=== PATIENT | male | born 1950 | race Caucasian/White ===

== ENCOUNTER 2017-08-30 06:32 | Inpatient (IN) | payer MEDICARE ==
--- NOTE | 2017-08-26 10:08 | HP ---
NEUROSURGERY SERVICE HISTORY OF PRESENT ILLNESS: Mr. Ledezma is a 66-year-old male with a past medical history of atrial fibrillation and hypertension who was recently seen in the office for a right C7 radiculopathy. MRI scan showed severe degenerative disk disease and congenitally small cervical canal, most pronounced at C5-C6 and C6-C7. Dr. Dumas discussed risks, benefits, and alternatives of C5-C7 ACDF and patient wishes to proceed. PAST MEDICAL HISTORY: Atrial fibrillation and hypertension. CURRENT MEDICATION LIST: Soma, Bystolic, amlodipine, Cymbalta. PAST SURGICAL HISTORY: Right shoulder surgery and back surgery. FAMILY HISTORY: Noncontributory. SOCIAL HISTORY: The patient does not smoke, drink or use any drugs. ALLERGIES: Patient has no known drug allergies. REVIEW OF SYSTEMS: Per HPI. PHYSICAL EXAMINATION: Patient appears comfortable sitting in the chair. He is in no acute distress. He has steady gait. No focal motor weakness is appreciated. No reflex asymmetry. Negative Delvalle' s, negative clonus. ASSESSMENT AND PLAN: C5-C7 anterior cervical discectomy and fusion. AMIRAH
[2017-08-27 11:55] VITALS: BMI 28.3
[2017-08-30] MEDS ORDERED: Sodium Chloride 0.9% 10 ML ONE (07:01)
[2017-08-30 08:05] LABS: #Eosinphils 0.2 thou/uL (0.0-0.7); #Lymphocytes 1.3 thou/uL (1.20-3.40); #Monocytes 0.3 thou/uL (0.11-0.59); #Neutrophils 3.5 thou/uL (1.40-6.50); %Basophils 0.2 % (0.0-1.0); %Eosinophils 3.4 % (0.0-10.0); %Lymphocytes 25.3 % (21.0-51.0); %Monocytes 4.8 % (0.0-10.0); %Neutrophils 66.3 % (42.0-75.0); Hemoglobin 11.9 g/dL (14.0-18.0); Mean Corpuscular Hemoglobin 33.6 pg (27.0-31.0); Mean Corpuscular Volume 96.1 fl (80.0-94.0); Mean Platelet Volume 6.9 fL (7.4-10.4); Platelet Count 147 thou/uL (130-400); RBC Distribution Width 11.9 % (11.5-14.5); Red Blood Cell (RBC) Count 3.54 mill/uL (4.70-6.10); White Blood Cell (WBC) Count 5.3 thou/uL (4.8-10.8)
[2017-08-30] MEDS ORDERED: CEFAZOLIN/Water 2 GM/20 ML SYRINGE ONE (08:10)
[2017-08-30 08:28] LABS: Anion Gap 12 mmol/L (10-20); BUN (Urea Nitrogen) 13 mg/dL (8.4-25.7); Calc. Creatinine Clearance 103 mL/min (70-130); Calcium 8.4 mg/dL (7.8-10.44); Carbon Dioxide 25 mmol/L (23-31); Chloride 109 mmol/L (98-107); Estimated GFR-MDRD Greater than 90; Glucose 106 mg/dL (80-115); Potassium 3.8 mmol/L (3.5-5.1); Sodium 142 mmol/L (136-145)
[2017-08-30] MEDS ORDERED: Lidocaine 1% PF 5 ML VIAL ONE (12:25)
[2017-08-30] MEDS ORDERED: Ketorolac Tromethamine 30 MG/ML VIAL ONE (12:25)
[2017-08-30] MEDS ORDERED: diphenhydrAMINE 50 MG/ML VIAL ONE (12:25)
[2017-08-30] MEDS ORDERED: PROPOFOL 200 MG/20 ML VIAL ONE (12:25)
[2017-08-30] MEDS ORDERED: Dexamethasone 20 MG/5 ML VIAL ONE (12:25)
[2017-08-30] MEDS ORDERED: Glycopyrrolate 0.2 MG/ML 5 ML SYRINGE ONE (12:25)
--- NOTE | 2017-08-30 13:53 | OP ---
DATE OF PROCEDURE: 08/30/2017 SURGEON: Bandar Dumas M.D. FLAGGER: Surjit Alvarenga PA-C PROCEDURES PERFORMED: Anterior cervical discectomy C5-C6 and C6-C7, interbody arthrodesis, intervert ebral biomechanical device, local morselized autograft, demineralized bone matrix, anterior titanium instrumentation. PROCEDURE IN DETAIL: The patient was brought to the operating room, intubated. He was positioned cifuentes pine with the head in modest extension on a gel-filled donut. Incision was made in the right precerv ical area and dissecting medial to the sternocleidomastoid muscle, as well as identified the anterior cervical spine and our level was confirmed by x-ray. We placed distraction across the interspaces a nd using the operative microscope and microdissection technique. We debrided the intervertebral disc s down to the level of the PLL decompressing the neural elements. The bony endplates were then decor ticated for the purpose of arthrodesis and appropriately sized intervertebral biomechanical PEEK gee ce was brought into the field, filled with demineralized bone matrix and local morselized autograft, and tapped into place securely at C5-C6 and C6-C7. Next, an anterior plate was brought in the field and secured to C5, C6, and C7 using two 14 mm screws at each level. The wound was then extensively i rrigated, immaculate hemostasis was secured. The wound was closed in anatomic layers.
--- NOTE | 2017-08-31 14:30 | EKG ---
Test Reason : PREOP Blood Pressure : / mmHG Vent. Rate : 073 BPM Atrial Rate : 073 BPM P-R Int : 204 ms QRS Dur : 092 ms QT Int : 422 ms P-R-T Axes : 061 027 035 degrees QTc Int : 464 ms Normal sinus rhythm Normal ECG No previous ECGs available Confirmed by DR. Cristina POLLOCK ([id number]) on 08/31/2017 2:29:50 PM Referred By: TERRA Confirmed By:DR. Cristina POLLOCK
== END 2017-08-30 12:24 | disposition home or self-care (01) | DRG 473 ==
LOC: SURG A 06:32
PROVIDERS: ADMIT Neurological Surgery; ATTEND Neurological Surgery
PROC: 0RG20A0 Fusion of 2 or more Cervical Vertebral Joints with Interbody Fusion Device, Anterior Approach, Anterior Column, Open Approach (ICD-10-PCS; principal; 2017-08-30)
PROC: 0RB30ZZ Excision of Cervical Vertebral Disc, Open Approach (ICD-10-PCS; 2017-08-30)
DX: M50.123 Cervical disc disorder at C6-C7 level with radiculopathy (principal); I48.91 Unspecified atrial fibrillation; I10 Essential (primary) hypertension; E78.5 Hyperlipidemia, unspecified; Z85.828 Personal history of other malignant neoplasm of skin
CPT/HCPCS: 36415; 76001; 80048; 85025; 93005; 93010; A4216; C1713; C1776; J1100; J1200; J1885; J2001; J2704; J3490

== ENCOUNTER 2018-04-11 07:38 | Inpatient (IN) | payer MEDICARE, OTHER ==
[2018-04-11 08:52] LABS: #Eosinphils 0.1 thou/uL (0.0-0.7); #Lymphocytes 1.5 thou/uL (1.20-3.40); #Monocytes 0.3 thou/uL (0.11-0.59); #Neutrophils 3.7 thou/uL (1.40-6.50); %Basophils 0.8 % (0.0-1.0); %Eosinophils 2.4 % (0.0-10.0); %Lymphocytes 26.8 % (21.0-51.0); %Monocytes 4.7 % (0.0-10.0); %Neutrophils 65.2 % (42.0-75.0); Hemoglobin 12.7 g/dL (14.0-18.0); Mean Corpuscular HGB CONC 34.9 g/dL (32.0-36.0); Mean Corpuscular Hemoglobin 32.8 pg (27.0-31.0); Mean Platelet Volume 7.5 fL (7.4-10.4); Platelet Count 168 thou/uL (130-400); RBC Distribution Width 11.5 % (11.5-14.5); Red Blood Cell (RBC) Count 3.87 mill/uL (4.70-6.10); White Blood Cell (WBC) Count 5.6 thou/uL (4.8-10.8)
[2018-04-11] MEDS ORDERED: Sodium Chloride 0.9% 10 ML ONE (09:03)
[2018-04-11 09:12] LABS: Anion Gap 14 mmol/L (10-20); BUN (Urea Nitrogen) 13 mg/dL (8.4-25.7); Calc. Creatinine Clearance 103 mL/min (70-130); Calcium 8.7 mg/dL (7.8-10.44); Carbon Dioxide 23 mmol/L (23-31); Chloride 106 mmol/L (98-107); Estimated GFR-MDRD Greater than 90; Glucose 121 mg/dL (80-115); Sodium 139 mmol/L (136-145)
[2018-04-11] MEDS ORDERED: Fentanyl 100 MCG/2 ML VIAL ONE ×3 (09:35→12:08)
[2018-04-11] MEDS ORDERED: CEFAZOLIN 2 GM/50 ML BAG ONE (09:38)
[2018-04-11] MEDS ORDERED: Promethazine HCl 25 MG/ML VIAL IM PRN ×2 (10:49→13:21)
[2018-04-11] MEDS ORDERED: Promethazine HCl 25 MG/ML VIAL SLOW IVP PRN (10:49)
--- NOTE | 2018-04-11 12:06 | EKG ---
Test Reason : PREOP Blood Pressure : / mmHG Vent. Rate : 069 BPM Atrial Rate : 069 BPM P-R Int : 206 ms QRS Dur : 088 ms QT Int : 430 ms P-R-T Axes : 061 018 041 degrees QTc Int : 460 ms Normal sinus rhythm Normal ECG When compared with ECG of 30-AUG-2017 08:29, No significant change was found Confirmed by ANA MARROQUIN ([id number]) on 04/11/2018 12:06:11 PM Referred By: TERRA Confirmed By:ANA MARROQUIN
--- NOTE | 2018-04-11 12:19 | OP ---
DATE OF PROCEDURE: 04/11/2018 GENERAL LABORER: Lyle. PROCEDURES PERFORMED: Removal of hardware, C5-C7, exploration of spinal fusion, C5-C7 anterior cervical diskectomy, C7-T1, interbody arthrodesis, intervertebral Biomechanical device, local morselized autograft, demineralized bone matrix, anterior titanium instrumentation, C5-T1. DESCRIPTION OF PROCEDURE: The patient was brought to the operating room and intubated. He was positioned supine with the head modest extension on a gel- filled donut. An incision was made in the right precervical area and dissected medial to the sternocleidomastoid muscle. We identified the anterior cervical spine and the level was confirmed by x-ray. We removed the previous plate from C5-C7. We explored the spinal fusion and I could not be convinced that it was solid. We next placed distraction from C7-T1 and using operative microscope and microdissection techniques, completely removed the intervertebral disk and decompressed the neural elements. The bony endplates were then decorticated for the purpose of arthrodesis and an appropriate-sized intervertebral Biomechanical PEEK device was brought into the field, and filled with demineralized bone matrix, local morselized autograft , and tapped in place securely at C7-T1. Next, an anterior plate was brought into the field and secured to C5, C6, C7, and T1 using two 14 mm screws at each level. The wound was extensively irrigated and adequate hemostasis was secured, and the wound was closed in anatomic layers over drain. Job ID: [id number] [id number]
[2018-04-11 13:14] VITALS: BMI 27.4
[2018-04-11] MEDS ORDERED: diphenhydrAMINE 25 MG CAP PO PRN (13:21)
[2018-04-11] MEDS ORDERED: tiZANidine HCl 4 MG TAB PO PRN (13:21)
[2018-04-11] MEDS ORDERED: Morphine 4 MG/ML VIAL SLOW IVP PRN (13:21)
[2018-04-11] MEDS ORDERED: diphenhydrAMINE 50 MG/ML VIAL IVP PRN (13:21)
[2018-04-11] MEDS ORDERED: Promethazine HCl 12.5 MG SUPP PR PRN (13:21)
[2018-04-11] MEDS ORDERED: traMADol HCl 50 MG TAB PO PRN ×2 (13:21)
[2018-04-11] MEDS ORDERED: Milk Of Magnesia 30 ML UDCUP PO PRN (13:21)
[2018-04-11] MEDS ORDERED: Mag-Al 1200 mg/1200 mg/30 ML UDCUP PO PRN (13:21)
[2018-04-11] MEDS ORDERED: Promethazine 25 MG TAB PO PRN (13:21)
[2018-04-11] MEDS ORDERED: HYDROcodone/Acetaminophen 10/325 mg Tablet PO PRN (13:21)
[2018-04-11] MEDS ORDERED: Ondansetron PF 4 MG/2 ML Vial IVP PRN (13:24)
[2018-04-11] MEDS ORDERED: Prevnar 13-Val Conj/PF 0.5 ML SYRINGE IM ONE (13:30)
[2018-04-11] MEDS: HYDROcodone/Acetaminophen 10/325 mg Tablet PO PRN ×2 (13:48→19:03)
[2018-04-11] MEDS: Sodium Chloride 0.9% 1,000 ML IV SCH (15:29)
[2018-04-11] MEDS ORDERED: hydrALAZINE 20 MG/ML VIAL SLOW IVP PRN (17:24)
--- NOTE | 2018-04-11 17:24 | PDOC.PN ---
- Subjective Encounter Start Date: 04/11/18 Encounter Start Time: 17:22 Pt seen for management of medical comorbidities including hypertension. Denies chest pain, shortness of breath, fevers or chills. - Objective MAR Reviewed: Yes Vital Signs & Weight: Vital Signs (12 hours) Temp Pulse Resp BP Pulse Ox 04/11/18 16:00 89 18 154/88 H 04/11/18 12:40 97.8 F 89 18 163/85 H 96 Weight Weight 170 lb I&O: 04/10/18 04/11/18 04/12/18 06:59 06:59 06:59 Intake Total 120 Balance 120 Result Diagrams: 04/11/18 08:41 04/11/18 08:41 Additional Labs: Labs reviewed by me Phys Exam - Physical Examination Constitutional: NAD HEENT: moist MMs s/p surgery Respiratory: clear to auscultation bilateral Cardiovascular: RRR Gastrointestinal: soft Neurological: moves all 4 limbs Psychiatric: normal affect Dx/Plan (1) HTN (hypertension) Code(s): I10 - ESSENTIAL (PRIMARY) HYPERTENSION Status: Acute Comment: continue beta catherine (nebivolol), hold amlodipine for now. PRN IV hydralazine for blood pressure spikes. (2) Atrial fibrillation Code(s): I48.91 - UNSPECIFIED ATRIAL FIBRILLATION Status: Chronic Comment: Pt currently in sinus rhythm, continue Flecainide - Plan * . Review of Systems - Review of Systems Respiratory: negative: Cough, Shortness of Breath, SOB with Excertion, Pleuritic Pain, Wheezing Cardiovascular: negative: chest pain, palpitations, orthopnea, paroxysmal nocturnal dyspnea, edema, light headedness - Medications/Allergies Allergies/Adverse Reactions: Allergies Allergy/AdvReac Type Severity Reaction Status Date / Time No Known Allergies Allergy Verified 04/11/18 15:36 Medications: Current Medications Hydrocodone Bitart/Acetaminophen (Bradner 10/325) 1 tab PO Q4H PRN PRN Reason: PAIN (1-3) Hydrocodone Bitart/Acetaminophen (Bradner 10/325) 2 tab PO Q4H PRN PRN Reason: PAIN (4-6) Last Admin: 04/11/18 13:48 Dose: 2 tab Al Hydroxide/Mg Hydroxide (Maalox) 30 ml PO Q4H PRN PRN Reason: Heartburn or Indigestion Diphenhydramine HCl (Benadryl) 25 mg PO Q6H PRN PRN Reason: Itching Diphenhydramine HCl (Benadryl) 25 mg IVP Q6H PRN PRN Reason: Itching Sodium Chloride (Normal Saline 0.9%) 1,000 mls @ 75 mls/hr IV .[id number] [facility] Last Admin: 04/11/18 15:29 Dose: Not Given Cefazolin Sodium/Dextrose 2 gm (/ Device) 50 mls @ 100 mls/hr IVPB Q8H [facility] Magnesium Hydroxide (Milk Of Magnesium) 30 ml PO Q12H PRN PRN Reason: Constipation Morphine Sulfate (Morphine) 2 mg SLOW IVP Q1H PRN PRN Reason: Moderate Breakthrough Pain Morphine Sulfate (Morphine) 4 mg SLOW IVP Q1H PRN PRN Reason: SEVERE BREAKTHROUGH PAIN Ondansetron HCl (Zofran) 4 mg IVP Q8H PRN PRN Reason: Nausea/Vomiting Promethazine HCl (Phenergan) 12.5 mg IM Q4H PRN PRN Reason: Nausea/Vomiting Promethazine HCl (Phenergan) 12.5 mg PO Q4H PRN PRN Reason: Nausea/Vomiting Promethazine HCl (Phenergan Suppository) 12.5 mg FL Q4H PRN PRN Reason: Nausea/Vomiting Sodium Chloride (Flush - Normal Saline) 10 ml IVF Q12HR ELVIA Sodium Chloride (Flush - Normal Saline) 10 ml IVF PRN PRN PRN Reason: Saline Flush Tizanidine HCl (Zanaflex) 4 mg PO Q6H PRN PRN Reason: MUSCLE SPASM Tramadol HCl (Ultram) 50 mg PO Q6H PRN PRN Reason: PAIN (1-3) Tramadol HCl (Ultram) 100 mg PO Q6H PRN PRN Reason: PAIN (4-6)
[2018-04-11] MEDS: CEFAZOLIN 2 GM/50 ML-DEXTROSE 2 GM in Premix Bag 1 BAG IVPB SCH (17:42)
[2018-04-11] MEDS ORDERED: Ondansetron PF 4 MG/2 ML Vial ONE (20:41)
[2018-04-11] MEDS ORDERED: ePHEDrine/0.9% NaCl/PF SYRINGE 50 mg/10 ml ONE (20:41)
[2018-04-11] MEDS ORDERED: PROPOFOL 200 MG/20 ML VIAL ONE (20:41)
[2018-04-11] MEDS ORDERED: PHENYLEPHRINE-NS 100 MCG/ML 10 ML SYRINGE ONE (20:41)
[2018-04-11] MEDS ORDERED: Glycopyrrolate 0.2 MG/ML 5 ML SYRINGE ONE (20:41)
[2018-04-11] MEDS ORDERED: Lidocaine 1% PF 5 ML VIAL ONE (20:41)
[2018-04-11] MEDS ORDERED: Dexamethasone 20 MG/5 ML VIAL ONE (20:41)
[2018-04-11] MEDS ORDERED: Nebivolol HCl 5 MG TAB PO SCH (21:00)
[2018-04-11] MEDS ORDERED: Doxazosin Mesylate 4 MG TAB PO SCH (21:00)
[2018-04-11] MEDS: Flecainide 50 MG TAB PO SCH (21:10)
[2018-04-12] MEDS: CEFAZOLIN 2 GM/50 ML-DEXTROSE 2 GM in Premix Bag 1 BAG IVPB SCH ×2 (02:37→09:18)
[2018-04-12] MEDS: Sodium Chloride 0.9% 1,000 ML IV SCH (02:42)
[2018-04-12] MEDS: HYDROcodone/Acetaminophen 10/325 mg Tablet PO PRN ×2 (03:45→10:43)
--- NOTE | 2018-04-12 07:00 | DIS ---
DATE OF ADMISSION: 04/11/2018 DATE OF DISCHARGE: 04/12/2018 HOSPITAL COURSE: The patient is a 67-year-old male, status post removal of hardware and extension to C7-T1. Following surgery, he was transitioned to the [facility] floor where his pain is well controlled with p.o. medications. He was tolerating regular diet and voiding appropriately. The patient did have JAMA drain placed intraoperatively and had minimal output overnight only 40 mL. I have seen the patient at the bedside this morning. He is awake, alert, in no acute distress. He has free active range of motion of all extremities, 5/5 strength throughout. Sensation is intact to light touch. He has normal reflexes. The patient has a steady gait. We will plan to dismiss the patient to home following removal of the JAMA drain. I have discussed home care and precautions. He will follow up with us in the office in 2 weeks. He has been provided scripts for hydrocodone and Zanaflex. Job ID: [id number]
[2018-04-12 08:40] VITALS: BP 145/84; TEMP 98.2
[2018-04-12] MEDS: Flecainide 50 MG TAB PO SCH (08:42)
--- NOTE | 2018-04-12 17:23 | PDOC.PN ---
- Subjective Encounter Start Date: 04/12/18 Encounter Start Time: 10:00 Pt seen for followup re: hypertension. Denies any complaints. - Objective MAR Reviewed: Yes Vital Signs & Weight: Vital Signs (12 hours) Temp Pulse Resp BP BP Pulse Ox 04/12/18 08:41 145/84 H 04/12/18 08:00 98.2 F 67 16 145/84 H 96 Weight Weight 170 lb I&O: 04/11/18 04/12/18 04/13/18 06:59 06:59 06:59 Intake Total 2260 Output Total 80 Balance 2180 Result Diagrams: 04/11/18 08:41 04/11/18 08:41 Additional Labs: Labs reviewed by me Phys Exam - Physical Examination Constitutional: NAD HEENT: moist MMs Neck: supple Respiratory: clear to auscultation bilateral Cardiovascular: RRR Gastrointestinal: soft Neurological: moves all 4 limbs Psychiatric: normal affect Dx/Plan (1) HTN (hypertension) Code(s): I10 - ESSENTIAL (PRIMARY) HYPERTENSION Status: Chronic Comment: reasonable control (2) Atrial fibrillation Code(s): I48.91 - UNSPECIFIED ATRIAL FIBRILLATION Status: Chronic Comment: continue Flecainide - Plan * . Plan to discharge noted, will sign off Review of Systems - Review of Systems Cardiovascular: negative: chest pain, palpitations, orthopnea, paroxysmal nocturnal dyspnea, edema, light headedness Gastrointestinal: negative: Nausea, Vomiting, Abdominal Pain, Diarrhea, Constipation, Melena, Hematochezia - Medications/Allergies Allergies/Adverse Reactions: Allergies Allergy/AdvReac Type Severity Reaction Status Date / Time No Known Allergies Allergy Verified 04/11/18 15:36
== END 2018-04-12 11:09 | disposition home or self-care (01) | DRG 30 ==
LOC: SURG A 07:38
PROVIDERS: ADMIT Neurological Surgery; ATTEND Neurological Surgery
PROC: 0RP10AZ Removal of Interbody Fusion Device from Cervical Vertebral Joint, Open Approach (ICD-10-PCS; principal; 2018-04-11)
PROC: 0RB50ZZ Excision of Cervicothoracic Vertebral Disc, Open Approach (ICD-10-PCS; 2018-04-11)
PROC: 0RG40A0 Fusion of Cervicothoracic Vertebral Joint with Interbody Fusion Device, Anterior Approach, Anterior Column, Open Approach (ICD-10-PCS; 2018-04-11)
DX: M54.12 Radiculopathy, cervical region (principal); I10 Essential (primary) hypertension; I48.91 Unspecified atrial fibrillation
CPT/HCPCS: 76001; 80048; 85025; 90471; 90662; 93005; 93010; 96374; C1713; C1776; G0008; G8978-GP-CI; G8979-GP-CI; G8980-GP-CI; J1100; J2001; J2405; J2704; J3010; J3490

== ENCOUNTER 2018-05-03 14:49 | Outpatient (CLI) | payer MEDICARE, OTHER ==
--- NOTE | 2018-05-03 16:38 | RAD ---
FOUR VIEWS CERVICAL SPINE: 05/03/18 HISTORY: Acute cervical radiculopathy. Followup surgery. COMPARISON: None available. FINDINGS: C1 to the cervicothoracic junction is seen on the lateral and swimmer's views of the cervical spine. Postsurgical changes related to anterior cervical fusion are noted with anterior plate and screws tra nsfixing C5-6, C6-7, and C7-T1 levels with intradiscal prostheses present at these levels. The anteri or margin of the plate is not completely flush with the anterior margin of the vertebral bodies. The vertebral body heights are within normal limits. Mild degenerative changes are seen at the C3-4 and C 4-5 levels with osteophytes present at these levels. Vertebral body heights are within normal limits. The prevertebral soft tissues are within normal limits. IMPRESSION: 1. Postsurgical changes related to anterior cervical fusion of C5 through T1 levels. Anterior ma rgin of the plate is not completely flush with the anterior margins of the vertebral bodies. 2. Mild degenerative changes in the cervical spine. POS: DAILY
== END 2018-05-03 14:50 | disposition home or self-care (01) ==
LOC: TBSIIMAG 14:49
PROVIDERS: ATTEND Neurological Surgery
DX: M47.22 Other spondylosis with radiculopathy, cervical region (principal); Z98.1 Arthrodesis status
CPT/HCPCS: 72040